=== PATIENT | female | born 1985 | race Caucasian/White ===

== ENCOUNTER 2019-02-17 02:51 | Emergency (ER) | payer MEDICAID ==
[~2019-02-17] VITALS: Ht 157.5 cm; Wt 72.6 kg
[2019-02-17 02:57] VITALS: BP 138/74
--- NOTE | 2019-02-17 03:02 | NUR ---
PT AMBULATED TO BED #11
--- NOTE | 2019-02-17 03:04 | NUR ---
PT AMBULATED TO THE RESTROOM
--- NOTE | 2019-02-17 03:18 | NUR ---
PT PRESENTS TO THE ED CO 5 SHARP EPIGASTRIC PAIN RADIATING TO THE UPPER BACK FOR THE PAST 35 MINS. PT REPORTS SHE HAS HAD SIMILAR EPISODES OF PAIN THAT COME AND GO INTERMITTENTLY. TODAY, SHE REPORTS THE PAIN WOKE HER UP IN THE MIDDLE OF THE NIGHT. DENIES EMESIS BUT REPORTS SOME MILD NAUSEA. -- PMH: DENIES -- RX: DENIES PT POSITIONED FOR COMFORT, HOB ELEVATED, SIDE RAIL UP X 1, WARM BLANKET PROVIDED.
[2019-02-17] MEDS ORDERED: KETOROLAC 30 MG/ML VIAL IM ONE (04:05)
[2019-02-17 04:59] LABS: BASOPHILS % (AUTO) 0.2 % (0.0-2.0); EOSINOPHILS # (AUTO) 0.1 K/uL (0-0.4); EOSINOPHILS % (AUTO) 1.1 % (0.0-4.0); HEMATOCRIT 40.1 % (36-48); LYMPHOCYTES # (AUTO) 2.5 K/uL (2.5-16.5); LYMPHOCYTES % (AUTO) 27.2 % (20.5-51.1); MEAN CORPUSCULAR HEMOGLOBIN 32 pg (27-31); MEAN CORPUSCULAR HGB CONC 35 g/dL (33-37); MEAN CORPUSCULAR VOLUME 92.1 fL (80-94); MONOCYTES # (AUTO) 0.5 K/uL (0.8-1.0); MONOCYTES % (AUTO) 5.7 % (1.7-9.3); NEUTROPHILS # (AUTO) 6.2 K/uL (1.8-7.7); NEUTROPHILS % (AUTO) 65.8 % (42.2-75.2); PLATELET COUNT (AUTO) 230 K/uL (140-450); RED BLOOD CELL COUNT(AUTO) 4.36 MIL/uL (4.20-5.40); WHITE BLOOD COUNT (AUTO) 9.4 K/uL (4.8-10.8)
--- NOTE | 2019-02-17 05:50 | NUR ---
Patient appears to be resting comfortably in bed. Vital Signs within normal limits. Respirations even and unlabored. Pt reports 0/10 pain. Positioned for comfort. HOB elevated. Side rail up X1. No apparent distress at this time. Warm blanket provided.
[2019-02-17 06:41] LABS: ALBUMIN 3.9 g/dL (3.4-5.0); ANION GAP 17.5 (8-16); CARBON DIOXIDE 25.3 mmol/L (21-32); POTASSIUM 3.8 mmol/L (3.5-5.1); TOTAL BILIRUBIN 0.6 mg/dL (0.0-1.0)
--- NOTE | 2019-02-17 06:45 | NUR ---
Patient discharged with v/s stable. Written and verbal after care instructions given and explained. Patient alert, oriented and verbalized understanding of instructions. Ambulatory with steady gait. All questions addressed prior to discharge. ID band removed. Patient advised to follow up with PMD. Rx of Mylanta, Bentyl, Acetaminophen given. Patient educated on indication of medication including possible reaction and side effects. Opportunity to ask questions provided and answered.
[2019-02-17 06:51] VITALS: BP 114/69
== END 2019-02-17 06:45 | disposition home or self-care (01) ==
LOC: MED 02:51
DX: K80.00 Calculus of gallbladder with acute cholecystitis without obstruction (principal)
CPT/HCPCS: 36415; 80053; 81002; 81025; 83690; 85025; 96372; 99283; J1885

== ENCOUNTER 2019-04-14 16:37 | Emergency (ER) | payer MEDICAID ==
[~2019-04-14] VITALS: Ht 154.9 cm; Wt 71.2 kg
[2019-04-14 16:45] VITALS: BP 137/82
--- NOTE | 2019-04-14 16:49 | NUR ---
WAIT IN LOBBY. AAOX4
--- NOTE | 2019-04-14 18:20 | NUR ---
PT AMB TO BED 12
--- NOTE | 2019-04-14 18:20 | NUR ---
PATIENT PRESENTS TO ED WITH C/O LEFT EYE PAIN X 1 WEEK. C/O PAIN 10/10 PT DENIES N/V/D; SKIN IS PINK/WARM/DRY; AAOX4 WITH EVEN AND STEADY GAIT; LUNGS CLEAR BL; HR EVEN AND REGULAR; PATIENT POSITIONED FOR COMFORT; HOB ELEVATED; BEDRAILS UP X2; BED DOWN. ER MD MADE AWARE OF PT STATUS.
--- NOTE | 2019-04-14 19:08 | NUR ---
RAMIN FIGUEROA EVALUATING PATIENT AT BEDSIDE.
--- NOTE | 2019-04-14 19:09 | NUR ---
RECIEVED REPORT FROM DAY SHIFT RNJOAQUIN. WILL TAKE OF CARE FOR PATIENT AT THIS TIME.
[2019-04-14] MEDS ORDERED: TETRACAINE HCL/PF 0.5% OPTH 4 ML BTL OP ONE (19:15)
[2019-04-14] MEDS ORDERED: FLUORESCEIN OPTH STRIP 0.6 MG OP ONE (19:15)
[2019-04-14] MEDS ORDERED: NACL 0.9% 1,000 ML IV ONE (19:55)
[2019-04-14 20:33] LABS: BASOPHILS % (AUTO) 0.3 % (0.0-2.0); EOSINOPHILS # (AUTO) 0.1 K/uL (0-0.4); EOSINOPHILS % (AUTO) 1.1 % (0.0-4.0); HEMATOCRIT 38.2 % (36-48); HEMOGLOBIN 13.2 g/dL (12.0-16.0); LYMPHOCYTES # (AUTO) 2.6 K/uL (2.5-16.5); LYMPHOCYTES % (AUTO) 32.1 % (20.5-51.1); MEAN CORPUSCULAR HEMOGLOBIN 32 pg (27-31); MEAN CORPUSCULAR HGB CONC 35 g/dL (33-37); MEAN CORPUSCULAR VOLUME 92.6 fL (80-94); MONOCYTES # (AUTO) 0.4 K/uL (0.8-1.0); MONOCYTES % (AUTO) 4.8 % (1.7-9.3); NEUTROPHILS # (AUTO) 4.9 K/uL (1.8-7.7); NEUTROPHILS % (AUTO) 61.7 % (42.2-75.2); PLATELET COUNT (AUTO) 243 K/uL (140-450); RED BLOOD CELL COUNT(AUTO) 4.13 MIL/uL (4.20-5.40); RED CELL DISTRIBUTION WIDTH 12.8 % (11.6-13.7)
[2019-04-14 20:48] LABS: ALBUMIN 3.6 g/dL (3.4-5.0); ANION GAP 12.6 (8-16); CARBON DIOXIDE 25.2 mmol/L (21-32); POTASSIUM 3.8 mmol/L (3.5-5.1); TOTAL BILIRUBIN 0.7 mg/dL (0.0-1.0)
--- NOTE | 2019-04-14 21:38 | NUR ---
PT TAKEN TO CT AT THIS TIME
--- NOTE | 2019-04-14 21:52 | NUR ---
PT RETURNED FROM CT AT THIS TIME VIA WHEELCHAIR
[2019-04-14] MEDS ORDERED: ACETAMINOPHEN 325 MG TAB PO ONE (22:05)
[2019-04-14 22:45] VITALS: BP 138/84
--- NOTE | 2019-04-14 22:45 | NUR ---
Patient discharged with v/s stable. Written and verbal after care instructions given and explained. Patient alert, oriented and verbalized understanding of instructions. Ambulatory with steady gait. All questions addressed prior to discharge. ID band removed. Patient advised to follow up with PMD. Rx of FIORICET given. Patient educated on indication of medication including possible reaction and side effects. Opportunity to ask questions provided and answered.
== END 2019-04-14 22:45 | disposition home or self-care (01) ==
LOC: MED 16:37
DX: H57.12 Ocular pain, left eye (principal); R51 Headache; H53.8 Other visual disturbances
CPT/HCPCS: 36415; 70460; 70491; 80053; 84703; 85025; 99284; J7030; Q9967